=== PATIENT | female | born 1985 | race Asian ===

== ENCOUNTER 2018-03-13 09:34 | Emergency (ER) | payer OTHER ==
[~2018-03-13] VITALS: Ht 152.4 cm; Wt 50.0 kg
[2018-03-13] MEDS ORDERED: LEVE500T53 PO (10:00)
[2018-03-13] MEDS ORDERED: METR250 PO (10:00)
[2018-03-13] MEDS ORDERED: ACETAMINOPHEN 325 MG TABLET PO ONE (10:15)
[2018-03-13 11:40] VITALS: BP 123/79
== END 2018-03-13 12:14 | disposition home or self-care (01) ==
LOC: EMS 09:37
DX: G40.909 Epilepsy, unspecified, not intractable, without status epilepticus (principal); F17.210 Nicotine dependence, cigarettes, uncomplicated; Z88.8 Allergy status to other drugs, medicaments and biological substances
CPT/HCPCS: 99406